=== PATIENT | male | born 1945 | race Caucasian/White ===

== ENCOUNTER 2020-12-19 23:57 | Emergency (ER) | payer MEDICARE, OTHER | END 2020-12-20 00:21 | disposition E | LOC: ER1 23:57 | DX: I46.9 Cardiac arrest, cause unspecified (principal); I49.01 Ventricular fibrillation; E11.9 Type 2 diabetes mellitus without complications; E66.9 Obesity, unspecified; Z88.0 Allergy status to penicillin | CPT/HCPCS: 82962; 92950; 94760; 99285; J0171 ==